=== PATIENT | male | born 1940 | race Two or more races ===

== ENCOUNTER 2025-06-06 10:05 | Inpatient (IN) | payer MEDICARE, OTHER ==
[~2025-06-06] VITALS: Ht 170.2 cm; Wt 99.3 kg
[2025-06-06 10:54] LABS: PLATELET COUNT (AUTO) 211 K/uL (150-450); RED BLOOD CELL COUNT(AUTO) 4.85 MIL/uL (4.5-6.0); RED CELL DISTRIBUTION WIDTH 16.7 % (11.5-15.0); WHITE BLOOD COUNT (AUTO) 8.5 K/uL (4.3-11.0)
[2025-06-06 11:05] LABS: CALCIUM, SERUM 9.2 mg/dL (8.5-10.1); CREATININE 1.1 mg/dL (0.6-1.3); SODIUM SERUM 142 mmol/L (136-145); UREA NITROGEN, BLOOD 15 mg/dL (7-18)
[2025-06-06 11:10] LABS: ASPARTATE AMINOTRANSFERASE 21 U/L (15-37); TOTAL PROTEIN, SERUM 8.1 g/dL (6.4-8.2)
[2025-06-06 11:12] LABS: LACTIC ACID 1.4 mmol/L (0.4-2.0)
[2025-06-06 11:13] LABS: INR 1.01 (0.91-1.10)
[2025-06-06] MEDS ORDERED: SUCR1TAB PO (13:15)
[2025-06-06] MEDS ORDERED: FURO20TA4 PO (13:15)
[2025-06-06] MEDS ORDERED: TRAZ-252 PO (13:15)
[2025-06-06] MEDS ORDERED: FAMO-108 PO (13:15)
[2025-06-06] MEDS ORDERED: LEVO-148 PO (13:15)
[2025-06-06] MEDS ORDERED: BUSP15TA3 PO (13:15)
[2025-06-06] MEDS ORDERED: ESOM40CA52 PO (13:15)
[2025-06-06] MEDS ORDERED: MELO-105 PO (13:15)
[2025-06-06] MEDS ORDERED: DOCU100C58 PO (13:15)
[2025-06-06] MEDS ORDERED: SERT100T12 PO (13:15)
[2025-06-06] MEDS ORDERED: ASPI-1420 PO (13:15)
[2025-06-06] MEDS ORDERED: METH500T6 PO (13:15)
[2025-06-06] MEDS ORDERED: LISI40TA13 PO (13:15)
[2025-06-06] MEDS ORDERED: AMLO-212 PO (13:15)
[2025-06-06] MEDS ORDERED: FERR325T24 PO (13:15)
[2025-06-06] MEDS ORDERED: ELVI1TAB3 PO (13:15)
[2025-06-06] MEDS ORDERED: Z GUARD REMEDY 4 OZ OINT TP PRN (16:00)
[2025-06-06] MEDS ORDERED: MAGNESIUM HYDROXIDE 30 ML UDC PO PRN (16:00)
[2025-06-06] MEDS ORDERED: ONDANSETRON HCL/PF 4 MG/2 ML VIAL IVP PRN (16:00)
[2025-06-06 16:10] VITALS: BP 148/76; TEMP 97.3; O2SAT 94
[2025-06-06] MEDS: SUCRALFATE 1 G TABLET PO SCH (16:39)
[2025-06-06] MEDS: METHOCARBAMOL (500MG) 500 MG TABLET PO SCH (16:39)
[2025-06-06] MEDS: DOCUSATE SODIUM 100 MG CAPSULE PO SCH (16:40)
[2025-06-06 20:00] VITALS: BP 123/85; TEMP 98.2; O2SAT 95
[2025-06-06] MEDS: TRAZODONE 50 MG TABLET PO PRN (22:43)
[2025-06-07 05:55] LABS: PLATELET COUNT (AUTO) 185 K/uL (150-450); RED BLOOD CELL COUNT(AUTO) 4.26 MIL/uL (4.5-6.0); RED CELL DISTRIBUTION WIDTH 17.0 % (11.5-15.0); WHITE BLOOD COUNT (AUTO) 6.2 K/uL (4.3-11.0)
[2025-06-07 06:07] LABS: CALCIUM, SERUM 8.4 mg/dL (8.5-10.1); CREATININE 0.9 mg/dL (0.6-1.3); PHOSPHORUS 3.8 mg/dL (2.5-4.9); SODIUM SERUM 144.0 mmol/L (136-145); UREA NITROGEN, BLOOD 17.0 mg/dL (7-18)
[2025-06-07] MEDS: LEVOTHYROXINE SODIUM 125 MCG TABLET PO SCH (07:44)
[2025-06-07 08:00] VITALS: BP_SYST 129; BP_SYST 138; BP_DIAS 76; TEMP 97.5; TEMP 97.9; O2SAT 94; O2SAT 95
[2025-06-07] MEDS: ASPIRIN EC 81 MG TABLET.DR PO SCH (08:46)
[2025-06-07] MEDS: FERROUS SULFATE (325 MG) 325 MG/TAB TABLET PO SCH (08:47)
[2025-06-07] MEDS: AMLODIPINE BESYLATE 5 MG TABLET PO SCH (08:47)
[2025-06-07] MEDS: SERTRALINE HCL 50 MG TABLET PO SCH (08:47)
[2025-06-07] MEDS: PANTOPRAZOLE 40 MG TABLET.DR PO SCH (08:47)
[2025-06-07] MEDS: FUROSEMIDE 20 MG TABLET PO SCH (08:48)
[2025-06-07] MEDS: LISINOPRIL (20MG) 20 MG TABLET PO SCH (08:48)
[2025-06-07] MEDS: FAMOTIDINE (20 MG) 20 MG TABLET PO SCH (08:48)
[2025-06-07] MEDS: MELOXICAM 7.5 MG TABLET PO SCH (08:49)
[2025-06-07] MEDS ORDERED: TRAZODONE 50 MG TABLET PO SCH (09:00)
[2025-06-07 16:13] VITALS: BP 142/87; TEMP 97.9; O2SAT 92
[2025-06-07 20:00] VITALS: BP 119/74; TEMP 97.9; O2SAT 95
[2025-06-08 08:00] VITALS: BP_SYST 127; BP_SYST 145; BP_DIAS 62; BP_DIAS 79; TEMP 96.4; TEMP 97.9; O2SAT 96; O2SAT 97
[2025-06-08] MEDS: MAG HYDROX/AL HYDROX/SIMETH 30 ML UDC PO PRN (08:00)
[2025-06-08 08:04] VITALS: BP 148/82; TEMP 97.4; O2SAT 97
[2025-06-08 16:00] VITALS: BP 136/68; TEMP 98.4; O2SAT 96
[2025-06-08 16:08] VITALS: BP 136/68; TEMP 98.4; O2SAT 96
[2025-06-08] MEDS: ACETAMINOPHEN 325 MG TABLET PO PRN (16:50)
[2025-06-08 20:00] VITALS: BP 129/68; TEMP 97.8; O2SAT 94
[2025-06-09 07:11] LABS: PLATELET COUNT (AUTO) 186 K/uL (150-450); RED BLOOD CELL COUNT(AUTO) 4.26 MIL/uL (4.5-6.0); RED CELL DISTRIBUTION WIDTH 16.3 % (11.5-15.0); WHITE BLOOD COUNT (AUTO) 6.6 K/uL (4.3-11.0)
[2025-06-09 07:21] LABS: CALCIUM, SERUM 8.4 mg/dL (8.5-10.1); CREATININE 1.0 mg/dL (0.6-1.3); PHOSPHORUS 3.1 mg/dL (2.5-4.9); SODIUM SERUM 136.0 mmol/L (136-145); UREA NITROGEN, BLOOD 15.0 mg/dL (7-18)
[2025-06-09 08:00] VITALS: BP 148/83; TEMP 97.7; O2SAT 100
[2025-06-09 16:00] VITALS: BP 137/84; TEMP 97.9; O2SAT 95
[2025-06-09 20:36] VITALS: BP 129/64; TEMP 97.9; O2SAT 96
[2025-06-10 08:51] VITALS: BP 122/58; TEMP 97.5; O2SAT 96
[2025-06-10] MEDS ORDERED: TRAZ-252 PO (10:59)
[2025-06-10] MEDS ORDERED: THYR30TA2 PO (10:59)
[2025-06-10] MEDS ORDERED: LEVO75TA PO (10:59)
[2025-06-11] MEDS ORDERED: LEVOTHYROXINE SODIUM 75 MCG TABLET PO SCH (07:30)
[2025-06-12 06:10] LABS: FOLIC ACID 6.0 ng/mL (>3.0)
== END 2025-06-10 13:07 | DRG 640 ==
LOC: ER 10:11 → MED 13:50
PROVIDERS: ADMIT Internal Medicine; ATTEND Nurse Practitioner Acute Care
DX: E86.0 Dehydration (principal); G93.41 Metabolic encephalopathy; R53.1 Weakness; Z98.2 Presence of cerebrospinal fluid drainage device; E87.20 Acidosis, unspecified; F29 Unspecified psychosis not due to a substance or known physiological condition; E66.9 Obesity, unspecified; F32.9 Major depressive disorder, single episode, unspecified; I10 Essential (primary) hypertension; K21.9 Gastro-esophageal reflux disease without esophagitis; Z68.34 Body mass index [BMI] 34.0-34.9, adult
CPT/HCPCS: 36415; 70450-TC; 71045-TC; 80048-TC; 80076-TC; 82607-TC; 83605-TC; 83735-TC; 83921; 84100-TC; 84425; 84443-TC; 84484-TC; 85025-TC; 85730-TC; 87040-TC; 87081-TC; 97110-TC; 97116-TC; 97530-TC; 97535-TC; G0378